=== PATIENT | female | born 1950 | race Caucasian/White ===

== ENCOUNTER 2024-04-29 15:43 | Outpatient (CLI) | payer MEDICARE, BC ==
[~2024-04-29] VITALS: Ht 165.1 cm; Wt 54.4 kg
[2024-04-29 15:59] LABS: TOTAL HEMOGLOBIN 13.4 G/dl (12.0-16.0)
[2024-04-29] MEDS ORDERED: albuterol 2.5 MG/3 ML nebule NEB PRN (16:10)
[2024-04-29] MEDS: albuterol 2.5 MG/3 ML nebule NEB ONE (16:26)
[2024-04-29 16:29] VITALS: PULSE 68; RESP 14; O2SAT 96
[2024-04-29 16:41] VITALS: PULSE 74; RESP 16
== END 2024-04-29 23:59 | disposition home or self-care (01) ==
LOC: RT 15:43
PROVIDERS: ATTEND Family Medicine
DX: J45.998 Other asthma (principal); J45.991 Cough variant asthma; J47.9 Bronchiectasis, uncomplicated; J61 Pneumoconiosis due to asbestos and other mineral fibers; J84.112 Idiopathic pulmonary fibrosis; D86.0 Sarcoidosis of lung; R06.02 Shortness of breath
CPT/HCPCS: 85018; 94060; 94727; 94729; 94760; J7030; Z7610